=== PATIENT | male | born 1955 | race African-American/Black ===

== ENCOUNTER 2019-01-02 07:10 | Observation (INO) ==
--- NOTE | 2019-01-02 08:15 | Diag Imaging Result Doc PS360 ---
EXAM : CT HEAD/C-SPINE W/O CONTRAST HISTORY: head injury/pain TECHNIQUE: 1. Emergent CT of the head without contrast 2. Emergent CT of the cervical spine without contrast COMPARISON: None. FINDINGS: Head: No parenchymal hemorrhage. No epidural or subdural hematoma. No subarachnoid hemorrhage. No mass identified on this noncontrasted exam. No hydrocephalus. No skull fracture. Cervical spine: There is good alignment to the cervical spine. No precervical soft tissue swelling. No subluxation. No fracture. Moderate degenerative changes. IMPRESSION: Head: No hemorrhage. No injury. Cervical spine: No acute fracture. This exam was performed using automated exposure control, adjustment of mA or kV according to patient size, and/or use of iterative reconstruction technique. Electronically signed by Jeremy Shipley 01/02/2019 8:13 AM
--- NOTE | 2019-01-02 08:16 | Diag Imaging Result Doc PS360 ---
EXAM: LUMBAR SPINE HISTORY: low back pain TECHNIQUE: AP and lateral with obliques, six views COMPARISON: None. FINDINGS: Mild scoliosis. Moderate degenerative changes most pronounced at L5-S1. No fracture. No subluxation. IMPRESSION: No fracture. Electronically signed by Jeremy Shipley 01/02/2019 8:14 AM
--- NOTE | 2019-01-02 08:23 | Diag Imaging Result Doc PS360 ---
EXAM: CT MAXILLOFACIAL(SINUS) W/O CO HISTORY: fall, facial injury TECHNIQUE: Emergent CT of the face without contrast COMPARISON: None. FINDINGS: No fracture. No dislocation. No sinus opacification or air-fluid levels. IMPRESSION: No acute bony injury. Electronically signed by Jeremy Shipley 01/02/2019 8:21 AM
[2019-01-02 08:52] LABS: BASO# 0.04 X1000 (0.0-0.2); BASO% 0.7 % (0.0-0.8); EOS% 3.4 % (0.0-10.0); HEMATOCRIT 35.4 % (42.0-52.0); HEMOGLOBIN 11.6 g/dL (14.0-18.0); LYMPH# 1.79 X1000 (1.2-3.4); LYMPH% 30.4 % (20.5-51.1); MCH 25.2 PG (27-31); MCHC 32.8 g/dL (33-37); MCV 76.8 FL (81-99); MONO# 0.74 X1000 (0.11-0.59); MONO% 12.6 % (1.7-9.3); MPV 10.1 FL (7.4-10.4); NEUT# 3.11 X1000 (1.4-6.5); NEUT% 52.9 % (42.2-75.2); PLT 314 X1000 (130-400); RBC 4.61 XMIL (4.7-6.1); RDW 15.2 % (11.5-14.5); WBC 5.88 X1000 (4.8-10.8)
[2019-01-02 08:54] LABS: ALB/GLOB RATIO 1.2; ALBUMIN 3.4 g/dL (3.5-5.0); CALCIUM 9.1 mg/dL (8.8-10.2); POTASSIUM 4.3 mmol/L (3.5-5.1); TOTAL BILIRUBIN 0.22 mg/dL (0.20-1.00); TOTAL PROTEIN 6.2 g/dL (6.3-8.3)
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
[2019-01-02] MEDS ORDERED: TORADOL IV ONE (09:20)
[2019-01-02] MEDS ORDERED: NS 1,000 ML IV ONE (09:21)
[2019-01-02 09:38] LABS: URINE SOURCE CLEAN CATCH
[2019-01-02 09:48] LABS: BILIRUBIN URINE NEGATIVE (NEGATIVE); BLOOD URINE NEGATIVE (NEGATIVE); COLOR YELLOW; GLUCOSE URINE TRACE mg/dL (NEGATIVE); KETONE URINE NEGATIVE (NEGATIVE); LEUKOCYTES URINE NEGATIVE (NEGATIVE); NITRITE URINE NEGATIVE (NEGATIVE); PROTEIN URINE 200 mg/dL (NEGATIVE); SP GRAVITY URINE 1.012; TURBIDITY URINE CLEAR (CLEAR); UROBILINOGEN URINE NORMAL (NORMAL)
[2019-01-02 09:49] LABS: UR EPITHELIAL CELLS <10 /HPF (<10); URINE BACTERIA NEGATIVE /HPF; URINE RBC <10 /HPF (<10); URINE WBC <10 /HPF (<10)
[2019-01-02] MEDS ORDERED: TYLENOL PO ONE (10:12)
[2019-01-02] MEDS ORDERED: ZOFRAN IV PRN (13:20)
[2019-01-02] MEDS ORDERED: SYNTHROID PO ONE (13:22)
--- NOTE | 2019-01-02 13:52 | HISTORY AND PHYSICAL ---
HISTORY OF PRESENT ILLNESS: Mr. Cheung stated this morning that he was going to the bathroom, standing up, I think he was urinating. He is not sure if he finished. Next thing he knew, he fell down, passed out. His stated he was not out for very long but he hit his face pretty hard, by her report. I do not see any swelling or areas of ecchymoses yet on his left forehead or face. He does have a headache. PAST MEDICAL HISTORY: 1. Diabetes mellitus type 2. 2. Hypertension. 3. Status post thyroidectomy. 4. He has had lower extremity swelling. He has been followed by Dr. Siegel, I think worked up for his lower extremity swelling. SURGICAL HISTORY: 1. Status post total thyroidectomy. 2. Left index finger broken, had internal fixation. 3. LASIK eye surgery, both eyes. SOCIAL HISTORY: Negative for alcohol or tobacco. FAMILY HISTORY: Mother had diabetes mellitus. Sister with diabetes mellitus. Father with diabetes mellitus, CVA, and cancer. I think he has another sister who has cancer. ALLERGIES: Gabapentin. He said at one point, they had given him 800 mg of ibuprofen and he did not tolerate that well. REVIEW OF SYSTEMS: General: No weight gain or loss that he is aware of. No fever or chills. HEENT: No change in visual or hearing acuity. He reports no neck pain. Respiratory: No increased work of breathing or dyspnea. Cardiovascular: No chest pain or tachy palpitation. Does not report any chest pain or discomfort or jaw pain or shoulder pain. Gastrointestinal and Genitourinary: No gross hematuria or dysuria. Endocrinologic and Hematologic: No significant history other than his thyroidectomy. PHYSICAL EXAMINATION: VITAL SIGNS: He is afebrile, temperature 97.6 degrees, pulse 79, respirations 16, blood pressure 114/69. HEENT: Pupils are equal. No distended neck veins. He is alert and oriented x3. He has no cervical or supraclavicular adenopathy. VASCULAR: Carotid, radial, femoral pulses 2+ and symmetrical. CARDIOVASCULAR EXAMINATION: Regular rhythm and rate without murmur or S3. ABDOMEN: Soft. SKIN: Warm and dry. They checked orthostatics. His pulse was 64, blood pressure 133/79 sitting. Standing, his pulse was 65, blood pressure 149/77. Supine, his pulse is 57, blood pressure 150/80. His weight is 186 pounds. He has no focal neurologic deficits. I do not appreciate any appreciable pedal edema at this time in the lower extremities. LABORATORY: White count 5880, hematocrit 35, platelet count 314,000. Sodium 139, potassium 4.3, chloride 107, BUN 41, creatinine 2.0. AST is 14, ALT is 12, albumin is 3.4. Urinalysis unremarkable. CT of the head and spine, cervical spine without contrast, no hemorrhages, no injury, no sign of acute fracture. His lumbar spine x-rays, no sign of fracture. Maxillofacial CT scan, no acute bony fracture. ASSESSMENT AND PLAN: 1. Syncopal episode. Does not describe any warning. Likely, this could be vasovagal. He did not report any trouble with voiding or straining. No nausea. We will put him on a quality assurance monitor body, see if there is any sign of arrhythmias. We will check of course his electrolytes including magnesium and potassium and calcium, his thyroid functions, and we will check a morning cortisol level, B12, and folate. We will check cardiac enzymes, troponin, and CK. Ask cardiology to assist. 2. Status post thyroidectomy. Make sure his thyroid is okay. Continue his Synthroid. I believe he is on 175 mcg daily. 3. In the past, he had a history of hypertension and apparently Dr. Siegel was seeing him for pedal edema which I assume this is probably chronic venous insufficiency. I am not sure if he has some diastolic dysfunction. We will obtain an echocardiogram, although he had one last year in November. His estimated ejection fraction was 60-65%. There was mild mitral regurgitation, trace tricuspid regurgitation. He had a myocardial perfusion scan done on 11/09/2017 which was negative. He had a low-grade fixed defect in the base of the inferior wall with significant diaphragmatic and chest wall attenuation. His ejection fraction was estimated to be 71% on that. 4. His creatinine, I am not sure what his baseline is. I suspect he has got some underlying chronic kidney disease. We are going to give him some fluids. I think we need to check a microalbuminuria and we will check a hemoglobin A1c in the morning and repeat his serum creatinine. cc: Viral Catherine MD
[2019-01-02 15:10] LABS: FREE T4 1.47 ng/dL (0.93-1.70); TSH 0.14 uIUmL (0.27-4.20)
[2019-01-02] MEDS: NS 1,000 ML IV SCH (16:12)
[2019-01-02] MEDS: HUMULIN R SUBQ SCH (17:58)
[2019-01-02] MEDS: TYLENOL PO PRN (19:46)
[2019-01-03] MEDS: HUMULIN R SUBQ SCH ×5 (00:08→22:18)
[2019-01-03] MEDS: NS 1,000 ML IV SCH ×2 (04:38→20:07)
[2019-01-03 05:54] LABS: BASO# 0.03 X1000 (0.0-0.2); BASO% 0.8 % (0.0-0.8); EOS# 0.14 X1000 (0.0-0.7); EOS% 3.7 % (0.0-10.0); HEMATOCRIT 31.2 % (42.0-52.0); HEMOGLOBIN 10.2 g/dL (14.0-18.0); LYMPH# 1.48 X1000 (1.2-3.4); LYMPH% 39.5 % (20.5-51.1); MCH 25.2 PG (27-31); MCHC 32.7 g/dL (33-37); MONO# 0.41 X1000 (0.11-0.59); MONO% 10.9 % (1.7-9.3); NEUT# 1.69 X1000 (1.4-6.5); NEUT% 45.1 % (42.2-75.2); PLT 286 X1000 (130-400); RBC 4.05 XMIL (4.7-6.1); WBC 3.75 X1000 (4.8-10.8)
[2019-01-03 06:12] LABS: INR 1.09; PROTIME 14.9 Seconds (11.0-16.0)
[2019-01-03 06:13] LABS: PTT 31.9 Seconds (22.3-41.8)
[2019-01-03 06:17] LABS: ALB/GLOB RATIO 1.1; ALBUMIN 2.9 g/dL (3.5-5.0); CALCIUM 7.9 mg/dL (8.8-10.2); CREATININE 2.2 mg/dL (0.7-1.2); MAGNESIUM 2.1 mg/dL (1.5-2.7); POTASSIUM 3.9 mmol/L (3.5-5.1); TOTAL BILIRUBIN 0.38 mg/dL (0.20-1.00); TOTAL PROTEIN 5.5 g/dL (6.3-8.3)
[2019-01-03] MEDS: SYNTHROID PO SCH (07:00)
--- NOTE | 2019-01-03 08:10 | EKG Report ---
Test Performed on : 01/03/2019 07:52:22 AM Test Reason : Blood Pressure : / mmHG Vent. Rate : 062 BPM Atrial Rate : 062 BPM P-R Int : 178 ms QRS Dur : 110 ms QT Int : 394 ms P-R-T Axes : 060 -22 061 degrees QTc Int : 399 ms Normal sinus rhythm. Normal ECG When compared with ECG of 04-FEB-2018 09:36, No significant change was found Unconfirmed Result
[2019-01-03] MEDS: ASPIRIN PO SCH (08:27)
[2019-01-03] MEDS: TYLENOL PO PRN ×2 (10:25→18:11)
[2019-01-03 11:02] LABS: IRON SATURATION 26 %; TIBC 270 ug/dL; TOTAL IRON 71 ug/dL (53-167); UNBOUND IRON 199 ug/dL (112-346)
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
--- NOTE | 2019-01-03 12:04 | PROGRESS NOTE ---
DATE: 01/03/2019 SUBJECTIVE: Mr. Cheung is feeling good, eating well. No nausea. No feelings of syncope or lightheadedness or palpitations. OBJECTIVE: Vitals: Temperature 98.2 degrees, pulse 60 respirations 16, blood pressure 141/77. Eyes: Pupils are equal and round. Lungs: Clear in all lung zimmerman. Cardiovascular: Regular rhythm and rate without murmur or S3. URINE OUTPUT: 250, good by his report. LABORATORY: Blood sugars 257, 148, 195. He has a mild microcytic anemia. Sodium 143, potassium 3.9. Chloride 113, BUN 42, creatinine 2.2. ASSESSMENT AND PLAN: 1. Syncopal episode. It sounds like this was vasovagal and he does not show any sign of cardiac ischemia. No arrhythmias proclaimed yet. 2. Status post thyroidectomy. His thyroid level, T4 is 1.47. TSH is 0.14. His B12 is 749, folate 10.2. 3. History of hypertension, being followed by Dr. Siegel. He was worked up for some pedal edema. Blood pressures look good. No sign of orthostasis. 4. Chronic kidney disease suspected. Creatinine is 2.2. 5. Macrocytic anemia. It may be worth checking his iron studies. cc: Viral Catherine MD
--- NOTE | 2019-01-03 19:07 | ECHO REPORT ---
ORDER DATE: 01/02/2019 INTERPRETING PHYSICIAN: Dr. Ohara CLINICAL INDICATIONS: Syncope. M-MODE MEASUREMENTS: Left ventricle end diastole: 3.4 cm. Left ventricle end systole: 2.4 cm. Posterior wall: 1.1 cm. Interventricular septum: 1.1 cm. Left atrium: 3.5 cm. SUMMARY OF 2-DIMENSIONAL IMAGIN. The left ventricular function is normal. Ejection fraction is estimated at 62%. There is no wall motion abnormality. Borderline concentric LVH. 2. The mitral valve looks normal. Color flow mapping reveals a trace of regurgitation. 3. Pulsed wave Doppler of mitral inflow shows reversal of the E and the A ratio. Ratio is 0.7. 4. Tissue Doppler of septal and lateral mitral annulus averages 8 cm. 5. There is no diastolic dysfunction. 6. The aortic valve looks normal. 7. The tricuspid valve shows no significant regurgitation. 8. Pulmonic pressure is estimated at 20 to 25 mmHg. The pulmonic valve is unremarkable. 9. There is no pericardial effusion, mass, and no thrombus. CONCLUSIONS: In summary, this study shows 1. Hyperdynamic left ventricle. 2. No diastolic dysfunction. 3. No evidence of any significant valvular abnormality or pulmonary hypertension. Clinical correlation recommended. The study is consistent with a potential history of vasovagal/vasodepressor syncope. cc: MD Kirstie Saravia CRNP
[2019-01-04] MEDS: NS 1,000 ML IV SCH ×2 (01:44→07:55)
[2019-01-04] MEDS: TYLENOL PO PRN (05:53)
[2019-01-04] MEDS: SYNTHROID PO SCH ×2 (05:53→07:25)
[2019-01-04 07:06] LABS: BASO# 0.04 X1000 (0.0-0.2); BASO% 0.8 % (0.0-0.8); EOS# 0.14 X1000 (0.0-0.7); EOS% 2.9 % (0.0-10.0); HEMATOCRIT 31.9 % (42.0-52.0); HEMOGLOBIN 10.2 g/dL (14.0-18.0); LYMPH# 1.82 X1000 (1.2-3.4); LYMPH% 37.6 % (20.5-51.1); MCH 24.8 PG (27-31); MCV 77.6 FL (81-99); MONO# 0.49 X1000 (0.11-0.59); MONO% 10.1 % (1.7-9.3); MPV 10.4 FL (7.4-10.4); NEUT# 2.35 X1000 (1.4-6.5); NEUT% 48.6 % (42.2-75.2); PLT 282 X1000 (130-400); RBC 4.11 XMIL (4.7-6.1); RDW 15.3 % (11.5-14.5); WBC 4.84 X1000 (4.8-10.8)
[2019-01-04] MEDS: HUMULIN R SUBQ SCH ×2 (07:24→12:29)
[2019-01-04 07:51] LABS: CALCIUM 7.6 mg/dL (8.8-10.2); POTASSIUM 4.4 mmol/L (3.5-5.1)
[2019-01-04] MEDS ORDERED: TOPROL XL PO SCH (09:00)
[2019-01-04] MEDS: ASPIRIN PO SCH (09:10)
--- NOTE | 2019-01-04 09:20 | CARDIOLOGY PROGRESS NOTE ---
DATE: 01/04/2019 CHIEF COMPLAINT: Syncope. SUBJECTIVE: Mr. Cheung is feeling just fine. He has no complaints. Telemetry shows no arrhythmia. OBJECTIVE: Vital signs: Blood pressure 163/75, temperature 97.6, pulse 62, respirations 16. General: He is awake, alert, in no distress. HEENT: Unremarkable. Chest: Clear to auscultation and percussion. Heart: Sounds are regular and rhythmic. No gallop or murmur. Abdomen: Soft, nontender. Extremities: Showed fairly good pulses. No edema. Neurologic exam: Follows commands, moves all 4 extremities. BLOOD WORK: Sodium 140, potassium 4.4, BUN 38, creatinine 2.0. Hemoglobin is 10.2, hematocrit 31.9. Of note, iron storage was checked yesterday. His iron level is 59 mcg, saturation 21%, TIBC is 282, ferritin is 22 which is low. IMPRESSION: 1. Patient who presented with syncope probably orthostatic hypotension. This is probably multifactorial. He has long-term diabetes likely to have diabetic polyneuropathy. He was urinating when this happened so this could be a micturition syncope. On the other hand, his echocardiogram shows a hyperdynamic ventricle with ejection fraction of 75% or better. Also a component of vasodepressor neurocardiogenic syncope may be at play here. 2. Chronic kidney disease. 3. Hypertension. RECOMMENDATIONS: At this time, I think the patient is clinically stable. I will suggest to consider giving him iron replacement. I will also consider doing beta-blockers on him at low-dose for example metoprolol XL 25 mg daily. From my viewpoint, he may be discharged and follow up with his established physicians, Dr. Apodaca and Dr. Siegel. I do not think any further cardiac workup is necessary. cc: Chris Ohara MD
[2019-01-04] MEDS ORDERED: ORAJEL MAXIMUM ST 20% GEL TOP ONE (12:51)
--- NOTE | 2019-01-04 14:40 | DISCHARGE SUMMARY ---
ADMISSION DATE: 01/02/2019 DISCHARGE DATE: 01/04/2019 HISTORY: He is followed by Dr. Aurelio Apodaca. He came in on 01/02/2019 stating that after going to the bathroom he passed out and hit his head. He did not have any warning, and came back to fairly quickly. PAST MEDICAL HISTORY: 1. Diabetes mellitus type 2. 2. Hypertension. 3. Status post thyroidectomy. 4. Lower extremity swelling which has been worked up and followed by Dr. Siegel, and I think history of some hypertension. SUMMARY: He presented with a syncopal episode. I did not see any evidence of seizure, and did not find any evidence of arrhythmias. He did have maxillofacial CT with no bony abnormality. He had a lumbar spine film done. No sign of any fractures. Head CT and cervical spine, no hemorrhages and no injury. No acute fractures. Cardiology Dr. Ohara evaluated the patient, and had a syncopal episode. We checked for iron deficiency. We also checked a carcinoembryonic antigen. [place] this is probably postural vasodepressor or vasovagal symptom. He had no arrhythmias. Lab was unremarkable. Cardiac enzymes negative. Blood pressures remained between 139 and 163/70 to 87, and all of his lab looks good. Electrolytes show blood sugars were 194, [address] Ohara want to put him on a little bit of a beta toby, and felt this may be postural hypertension multifactorial, long-term diabetes likely diabetic polyneuropathy. He was urinating when this happened so it could be some micturition syncope. Echocardiogram showed ejection fraction 75%. Also, he had a hyperdynamic ventricle, so we wanted to add the Toprol. We added Toprol-XL 25 mg a day. Plan to follow up with Dr. Apodaca and Dr. Siegel. DISCHARGE MEDICATIONS: He will be on aspirin 81 mg a day, Synthroid 175 mcg a day, Toprol-XL 25 mg a day. We will plan on keeping him on his losartan hydrochlorothiazide which is 100-12.5 one a day. He takes his Humalog at home 22 units t.i.d. and Lantus SoloSTAR 40 units every morning, and put him on his Otezla 30 mg b.i.d. p.r.n. cc: Viral Catherine MD
[2019-01-04 15:12] VITALS: BP 179/81
== END 2019-01-04 17:10 | disposition home or self-care (01) ==
LOC: ED 07:10 → EDIPHOLD 14:00 → INTOOBSV 14:00 → 4N 19:36
PROVIDERS: ATTEND Emergency Medicine
CPT/HCPCS: 70450; 70486; 72110; 72125; 80048; 80053; 81001; 82043; 82378; 82533; 82550; 82607; 82728; 82746; 82948; 83540; 83550; 83735; 84439; 84443; 84484; 85025; 85610; 85730; 86140; 93005; 93306; 96361; 96374; 99285; A9270; J1885; J7030; XXXXX

== ENCOUNTER 2019-07-25 16:22 | Inpatient (IN) ==
[2019-07-25 16:55] LABS: URINE SOURCE CLEAN CATCH
[2019-07-25 17:02] LABS: BILIRUBIN URINE NEGATIVE (NEGATIVE); BLOOD URINE MODERATE (NEGATIVE); COLOR YELLOW; GLUCOSE URINE >1000 mg/dL (NEGATIVE); KETONE URINE NEGATIVE (NEGATIVE); LEUKOCYTES URINE NEGATIVE (NEGATIVE); NITRITE URINE NEGATIVE (NEGATIVE); PROTEIN URINE 600 mg/dL (NEGATIVE); SP GRAVITY URINE 1.017; TURBIDITY URINE CLEAR (CLEAR); UROBILINOGEN URINE NORMAL (NORMAL)
[2019-07-25 17:03] LABS: BASO# 0.01 X1000 (0.0-0.2); BASO% 0.1 % (0.0-0.8); EOS# 0.01 X1000 (0.0-0.7); EOS% 0.1 % (0.0-10.0); HEMATOCRIT 35.7 % (42.0-52.0); HEMOGLOBIN 11.5 g/dL (14.0-18.0); IMM GRAN# 0.02 X1000 (0.0-0.04); IMM GRAN% 0.2 % (0.0-0.5); LYMPH# 0.38 X1000 (1.2-3.4); LYMPH% 3.6 % (20.5-51.1); MCHC 32.2 g/dL (33-37); MCV 80.8 FL (81-99); MONO% 4.8 % (1.7-9.3); NEUT# 9.57 X1000 (1.4-6.5); NEUT% 91.2 % (42.2-75.2); PLT 343 X1000 (130-400); RBC 4.42 XMIL (4.7-6.1); RDW 14.2 % (11.5-14.5); WBC 10.49 X1000 (4.8-10.8)
[2019-07-25 17:04] LABS: UR EPITHELIAL CELLS <10 /HPF (<10); URINE BACTERIA NEGATIVE /HPF; URINE WBC <10 /HPF (<10)
[2019-07-25 17:13] LABS: BLOOD TYPE VENOUS; HCO3-(ACT) 13.2 mmoll (22-27); PCO2(98.6) 54 mmHg (40-60); PO2(98.6) 133 mmHg (30-55); SAMPLE BLOOD; SAO2 99.4 % (40.0-85.0)
[2019-07-25 17:14] LABS: HEMOGLOBIN A1C 13.8 % (4.8-6.0)
[2019-07-25 17:20] LABS: pH(98.6) 7.06 (7.32-7.43)
[2019-07-25 17:25] LABS: INFLUENZA A NEGATIVE (NEGATIVE); INFLUENZA B NEGATIVE (NEGATIVE)
[2019-07-25 17:26] LABS: CALCIUM 7.8 mg/dL (8.8-10.2); CREATININE 1.8 mg/dL (0.7-1.2); POTASSIUM 5.1 mmol/L (3.5-5.1); TOTAL BILIRUBIN 0.5 mg/dL (0.20-1.00)
[2019-07-25 17:43] LABS: LYMPHS 4 % (21-51); MONO 5 % (1-9); POIKILOCYTOSIS OCCASIONAL; SEGS 91 % (42-75)
[2019-07-25 17:44] LABS: OVALOCYTES OCCASIONAL
[2019-07-25 18:52] LABS: AMYLASE 59 U/L (20-200); LIPASE 26 U/L (13-60)
[2019-07-25 23:10] LABS: CALCIUM 7.3 mg/dL (8.8-10.2); MAGNESIUM 1.6 mg/dL (1.5-2.7); POTASSIUM 3.7 mmol/L (3.5-5.1)
[2019-07-26 01:17] LABS: CALCIUM 7.2 mg/dL (8.8-10.2); CREATININE 2.1 mg/dL (0.7-1.2); MAGNESIUM 2.1 mg/dL (1.5-2.7); PHOSPHORUS 2.1 mg/dL (2.7-4.5)
[2019-07-26 04:51] LABS: ALLEN TEST YES; BE -0.3 mmoll (-3.0-3.0); BLOOD TYPE ARTERIAL; HCO3-(ACT) 24.6 mmoll (20.0-26.0); METHB 1.6 % (0.0-1.5); O2(CT) 12.5 mL/dL (15.0-23.0); O2HB 93.7 % (95.0-99.0); PCO2(98.6) 37 mmHg (35-45); PO2(98.6) 66 mmHg (60-100); SAMPLE BLOOD; SAO2 97.1 % (95.0-100.0); THB 9.4 g/dL (11.5-17.4); pH(98.6) 7.42 (7.35-7.45)
[2019-07-26 04:52] LABS: MODALITY ROOM AIR
[2019-07-26 06:43] LABS: ALBUMIN 2.3 g/dL (3.5-5.0); CALCIUM 7.5 mg/dL (8.8-10.2); CREATININE 2.2 mg/dL (0.7-1.2); PHOSPHORUS 2.1 mg/dL (2.7-4.5); TOTAL BILIRUBIN 0.43 mg/dL (0.20-1.00); TOTAL PROTEIN 4.5 g/dL (6.3-8.3)
[2019-07-26 07:15] LABS: BASO# 0.01 X1000 (0.0-0.2); BASO% 0.2 % (0.0-0.8); EOS# 0.02 X1000 (0.0-0.7); EOS% 0.5 % (0.0-10.0); HEMATOCRIT 29.8 % (42.0-52.0); HEMOGLOBIN 9.4 g/dL (14.0-18.0); LYMPH# 0.67 X1000 (1.2-3.4); LYMPH% 15.2 % (20.5-51.1); MCH 25.9 PG (27-31); MCHC 31.5 g/dL (33-37); MCV 82.1 FL (81-99); MONO# 0.45 X1000 (0.11-0.59); MONO% 10.2 % (1.7-9.3); MPV 9.9 FL (7.4-10.4); NEUT# 3.25 X1000 (1.4-6.5); NEUT% 73.9 % (42.2-75.2); PLT 311 X1000 (130-400); RBC 3.63 XMIL (4.7-6.1); RDW 13.8 % (11.5-14.5)
[2019-07-26 10:32] LABS: CALCIUM 7.5 mg/dL (8.8-10.2); CREATININE 2.1 mg/dL (0.7-1.2); MAGNESIUM 1.9 mg/dL (1.5-2.7); PHOSPHORUS 2.2 mg/dL (2.7-4.5); POTASSIUM 4.3 mmol/L (3.5-5.1)
[2019-07-26 11:51] VITALS: BP 156/73
[2019-07-26 14:23] LABS: CALCIUM 7.8 mg/dL (8.8-10.2); CREATININE 2.2 mg/dL (0.7-1.2); POTASSIUM 4.5 mmol/L (3.5-5.1)
== END 2019-07-26 17:11 | disposition home or self-care (01) | DRG 638 ==
LOC: P.ED 16:22 → SUATTDRO 16:23 → 2N 16:23 → EDIPHOLD 07-26 16:35
PROVIDERS: ATTEND Emergency Medicine